=== PATIENT | female | born 1990 | race Caucasian/White ===

== ENCOUNTER 2016-07-16 09:28 | Observation (INO) | payer BC, OTHER ==
[~2016-07-16] VITALS: Ht 154.9 cm; Wt 50.0 kg
[~2016-07-16 09:28] MED LIST: TRAM50 PO; Z.0.NO CURRENT MEDS
[2016-07-16 09:29] VITALS: BP 112/76; PULSE 94; RESP 15; TEMP 97.4; O2SAT 98
[2016-07-16] MEDS ORDERED: SODIUM CHLOR 0.9% 1000 ML INJ 1,000 ML IV SCH (11:10)
[2016-07-16] MEDS ORDERED: SODIUM CHLORIDE 0.9% FLUSH 5 ML FLUSH IVF PRN ×2 (11:15→17:00)
[2016-07-16] MEDS ORDERED: ONDANSETRON HCL 4 MG/2 ML VIAL IVP ONE (11:15)
[2016-07-16] MEDS ORDERED: MORPHINE SULFATE 4 MG/ML INJ IV PUSH ONE ×3 (11:15→14:45)
--- NOTE | 2016-07-16 11:16 | PD ---
HPI Chief Complaint: Abdominal Pain Time Seen by Provider: 11:12 Travel History International Travel<30 days: No Contact w/Intl Traveler<30days: No Traveled to known affect area: No History of Present Illness HPI Patient comes in complaining of abdominal pain that she awoke with around 5:00 this morning. Patient reports pain is epigastric and right lower quadrant. Patient states she tried eating a banana with no improvement of her symptoms. Patient denies doing anything else for this. Patient describes pain as a cramping twisting sensation. Patient reports she has felt nauseous but denies any actual vomiting. Denies any chest pain, shortness breath, fevers, , diarrhea, or back pain. Patient's only reported abdominal surgeries C- section 4 years ago. [facility] Past Medical History Medical History: Denies Significant Hx Diminished Hearing: No ?: Not : 1 Para: 1 Past Surgical History Section: Yes Social History Alcohol Use: No Tobacco Use: No Substance Use: No Allergies-Medications (Allergen,Severity, Reaction): Coded Allergies: No Known Allergies (Verified , 04/06/12) Reported Meds & Prescriptions Reported Meds & Active Scripts Active Ultram (Tramadol HCl) 50 Mg Tab 1-2 Tab PO Q6-8HPRN FOR PAIN Reported No Current Meds (Miscellaneous Medication) Misc Review of Systems Except as stated in HPI: all other systems reviewed are Neg Physical Exam Narrative GENERAL: Well-developed, well nourished, in no acute distress, and non-ill appearing, but does appear uncomfortable. SKIN: Warm and dry. HEAD: Atraumatic. Normocephalic. EYES: Pupils equal and round. EOMI. No scleral icterus. No injection or drainage. ENT: No nasal bleeding or discharge. Mucous membranes pink and moist. NECK: Trachea midline. Supple. No nuclear rigidity. CARDIOVASCULAR: Regular rate and rhythm. No murmur appreciated. RESPIRATORY: No accessory muscle use. No respiratory distress. Clear to auscultation. Breath sounds equal bilaterally. GASTROINTESTINAL: Abdomen soft, right lower quadrant tenderness over McBurney's point, nondistended. Hepatic and splenic margins not palpable. Normal bowel sounds 4. No pulsatile mass. MUSCULOSKELETAL: No obvious deformities. No clubbing. No cyanosis. No edema. Full range of motion. NEUROLOGICAL: Awake and alert. No obvious cranial nerve deficits. Motor grossly within normal limits. Normal speech. PSYCHIATRIC: Appropriate mood and affect; insight and judgment normal. Data Data Last Documented VS Vital Signs Date Time Temp Pulse Resp B/P Pulse Ox O2 Delivery O2 Flow Rate FiO2 07/16/16 13:00 20 07/16/16 12:55 85 107/71 99 Room Air 07/16/16 09:29 97.4 Orders Urinalysis - C+S If Indicated (07/16/16 10:03) Ed Urine Pregnancytest Poc (07/16/16 10:03) Complete Blood Count With Diff (07/16/16 11:10) Comprehensive Metabolic Panel (07/16/16 11:10) Lipase (07/16/16 11:10) Prothrombin Time / Inr (Pt) (07/16/16 11:10) Act Partial Throm Time (Ptt) (07/16/16 11:10) Ct Abd/Pel W Iv Contrast(Rout) (07/16/16 11:10) Iv Access Insert/Monitor (07/16/16 11:10) Ecg Monitoring (07/16/16 11:10) Oximetry (07/16/16 11:10) NPO (07/16/16 11:10) Morphine Inj (Morphine Inj) (07/16/16 11:15) Ondansetron Inj (Zofran Inj) (07/16/16 11:15) Sodium Chlor 0.9% 1000 Ml Inj (Ns 1000 M (07/16/16 11:10) Sodium Chloride 0.9% Flush (Ns Flush) (07/16/16 11:15) Morphine Inj (Morphine Inj) (07/16/16 12:45) Iohexol 350 Inj (Omnipaque 350 Inj) (07/16/16 14:00) Piperacil-Tazo 3.375 Gm Premix (Zosyn 3. (07/16/16 14:45) Ondansetron Inj (Zofran Inj) (07/16/16 14:45) Morphine Inj (Morphine Inj) (07/16/16 14:45) Admit Order (Ed Use Only) (07/16/16 14:45) Labs Laboratory Tests Test 07/16/16 11:35 White Blood Count 15.8 TH/MM3 Red Blood Count 4.87 MIL/MM3 Hemoglobin 15.0 GM/DL Hematocrit 43.0 % Mean Corpuscular Volume 88.3 FL Mean Corpuscular Hemoglobin 30.8 PG Mean Corpuscular Hemoglobin 34.9 % Concent Red Cell Distribution Width 12.3 % Platelet Count 185 TH/MM3 Mean Platelet Volume 8.3 FL Neutrophils (%) (Auto) 79.7 % Lymphocytes (%) (Auto) 12.7 % Monocytes (%) (Auto) 6.1 % Eosinophils (%) (Auto) 1.2 % Basophils (%) (Auto) 0.3 % Neutrophils # (Auto) 12.6 TH/MM3 Lymphocytes # (Auto) 2.0 TH/MM3 Monocytes # (Auto) 1.0 TH/MM3 Eosinophils # (Auto) 0.2 TH/MM3 Basophils # (Auto) 0.1 TH/MM3 CBC Comment DIFF FINAL Differential Comment Prothrombin Time 10.9 SEC Prothromb Time International 1.0 RATIO Ratio Activated Partial 31.1 SEC Thromboplast Time Urine Color LIGHT-YELLOW Urine Turbidity CLEAR Urine pH 7.0 Urine Specific [place] 1.014 Urine Protein NEG mg/dL Urine Glucose (UA) NEG mg/dL Urine Ketones NEG mg/dL Urine Occult Blood NEG Urine Nitrite NEG Urine Bilirubin NEG Urine Urobilinogen LESS THAN 2.0 MG/DL Urine Leukocyte Esterase NEG Urine WBC LESS THAN 1 /hpf Urine Squamous Epithelial <1 /hpf Cells Urine Mucus FEW /lpf Microscopic Urinalysis Comment CULT NOT INDICATED Sodium Level 139 MEQ/L Potassium Level 4.4 MEQ/L Chloride Level 105 MEQ/L Carbon Dioxide Level 28.7 MEQ/L Anion Gap 5 MEQ/L Blood Urea Nitrogen 11 MG/DL Creatinine 0.66 MG/DL Estimat Glomerular Filtration 107 ML/MIN Rate Random Glucose 86 MG/DL Calcium Level 9.0 MG/DL Total Bilirubin 0.9 MG/DL Aspartate Amino Transf 36 U/L (AST/SGOT) Alanine Aminotransferase 62 U/L (ALT/SGPT) Alkaline Phosphatase 80 U/L Total Protein 8.2 GM/DL Albumin 4.1 GM/DL Lipase 191 U/L [facility] Medical Decision Making Medical Screen Exam Complete: Yes Emergency Medical Condition: Yes Differential Diagnosis Appendicitis, pancreatitis, diverticulitis, colitis, gastroenteritis, UTI, other Narrative Course Patient seen and examined. Laboratory studies were obtained and reviewed. CTs were read by radiology as acute appendicitis. She was given morphine for pain, Zofran for nausea, started on Zosyn. Discussed patient with Dr. Greco, his son evaluated the patient and discussed patient with Dr. Castle on-call general surgeon for admission. Discussed all findings and plan of care with patient was agreeable for admission. All questions were answered.. Diagnosis Primary Impression: Appendicitis, acute Qualified Code: K35.80 - Acute appendicitis, unspecified acute appendicitis type Admitting Information Admitting Physician Requests: Observation Condition: Stable Jeff Brooks Jul 16, 2016 11:16
[2016-07-16 11:54] LABS: AUTOMATED NEUTROPHIL # 12.6 TH/MM3 (1.8-7.7); BASOPHIL # 0.1 TH/MM3 (0-0.2); BASOPHIL % 0.3 % (0.0-2.0); EOSINOPHIL # 0.2 TH/MM3 (0-0.4); EOSINOPHIL % 1.2 % (0.0-4.0); HEMO FLAGS DIFF FINAL; LYMPH % 12.7 % (9.0-44.0); MEAN CELL VOLUME 88.3 FL (80.0-100.0); MEAN CORPUSCULAR HEMOGLOBIN 30.8 PG (27.0-34.0); MEAN CORPUSCULAR HGB CONC 34.9 % (32.0-36.0); MONO % 6.1 % (0.0-8.0); NEUT % 79.7 % (16.0-70.0); PLATELET COUNT 185 TH/MM3 (150-450); RED BLOOD COUNT 4.87 MIL/MM3 (4.00-5.30); RED CELL DISTRIBUTION WIDTH 12.3 % (11.6-17.2); WHITE BLOOD COUNT 15.8 TH/MM3 (4.0-11.0)
[2016-07-16] MEDS ORDERED: PROPOFOL 200 MG/20 ML AMP IV ONE (12:00)
[2016-07-16] MEDS ORDERED: NEOSTIGMINE 3 MG/3 ML SYR IV ONE (12:00)
[2016-07-16] MEDS ORDERED: NORMOSOL R INJ 1,000 ML IV ONE (12:00)
[2016-07-16] MEDS ORDERED: ONDANSETRON HCL 4 MG/2 ML VIAL IV PUSH ONE ×2 (12:00→14:45)
[2016-07-16] MEDS ORDERED: KETOROLAC TROMETHAMINE 60 MG/2 ML (IM) VIAL IM ONE (12:00)
[2016-07-16 12:04] LABS: PROTHROMBIN TIME - PATIENT 10.9 SEC (9.8-11.6)
[2016-07-16 12:07] LABS: APTT (PATIENT) 31.1 SEC (24.3-30.1)
[2016-07-16 12:09] LABS: BLOOD, URINE NEG (NEG); GLUCOSE,URINE NEG (NEG); KETONE, URINE NEG (NEG); MUCUS URINE FEW /lpf (OCC); NITRITE,URINE NEG (NEG); SQUAMOUS EPITHELIAL CELL URINE <1 /hpf (0-5); URINE COLOR LIGHT-YELLOW (YELLW/STRAW)
[2016-07-16 12:10] LABS: COMMENT (UR) CULT NOT INDICATED; CULTURE IF INDICATED CULT NOT INDICATED
[2016-07-16 12:14] LABS: ALKALINE PHOSPHATASE 80 U/L (45-117); ALT (GPT) 62 U/L (10-53); ANION GAP 5 MEQ/L (5-15); AST (GOT) 36 U/L (15-37); BICARBONATE 28.7 MEQ/L (21.0-32.0); BLOOD UREA NITROGEN 11 MG/DL (7-18); CHLORIDE 105 MEQ/L (98-107); GLOMERULAR FILTRATION RATE 107 ML/MIN (>89); SODIUM (NA) 139 MEQ/L (136-145); TOTAL BILIRUBIN ADULT 0.9 MG/DL (0.2-1.0)
[2016-07-16 12:28] LABS: POTASSIUM 4.4 MEQ/L (3.5-5.1)
[2016-07-16 12:55] VITALS: BP 107/71; PULSE 85; RESP 18; O2SAT 99
[2016-07-16] MEDS ORDERED: IOHEXOL 350 MG/ML 10 ML VIAL (for RAD DIAG) IV ONE (14:00)
--- NOTE | 2016-07-16 14:38 | RADRPT ---
EXAM DATE/TIME: 07/16/2016 13:40 [place] COMPARISON: No previous studies available for comparison. INDICATIONS : Epigastric pain. IV CONTRAST: 100 cc Omnipaque 350 (iohexol) IV ORAL CONTRAST: No oral contrast ingested. RADIATION DOSE: 4.54 CTDIvol (mGy) MEDICAL HISTORY : None SURGICAL HISTORY : section. ENCOUNTER: Initial ACUITY: 1 day PAIN SCALE: 10/10 LOCATION: Right lower quadrant TECHNIQUE: Volumetric scanning of the abdomen and pelvis was performed. Using automated exposure control and ad justment of the mA and/or kV according to patient size, radiation dose was kept as low as reasonably achievable to obtain optimal diagnostic quality images. FINDINGS: LOWER LUNGS: The visualized lower lungs are clear. LIVER: Homogeneous density without lesion. There is no dilation of the biliary tree. No calcified gallston es. SPLEEN: Normal size without lesion. PANCREAS: Within normal limits. KIDNEYS: Normal in size and shape. There is no mass, stone or hydronephrosis. ADRENAL GLANDS: Within normal limits. VASCULAR: There is no aortic aneurysm. BOWEL/MESENTERY: The stomach, small bowel, and colon demonstrate no acute abnormality. There is no free intraperitone al air. There is a trace on the free fluid in the pelvis. The appendix is fluid-filled and dilated me asuring up to 10 mm. There is questionable induration/inflammation of the periappendiceal fat. ABDOMINAL WALL: Within normal limits. RETROPERITONEUM: There is no lymphadenopathy. BLADDER: No wall thickening or mass. REPRODUCTIVE: Within normal limits. INGUINAL: There is no lymphadenopathy or hernia. MUSCULOSKELETAL: Within normal limits for patient age. CONCLUSION: 1. Dilated fluid-filled appendix with suspected mild inflammation in the surrounding periappendiceal fat. Findings are suspicious for acute appendicitis. Suggest correlation to clinical history since e indication provided above indicates epigastric pain. 2. There is trace free fluid in the pelvis. Leonid Villareal MD on July 16, 2016 at 14:32 Board Certified Radiologist. This report was verified electronically.
[2016-07-16] MEDS ORDERED: PIPERACIL-TAZO 3.375 GM PREMIX 50 ML IV ONE (14:45)
--- NOTE | 2016-07-16 14:50 | PD ---
Physical Exam Narrative GENERAL: Well-nourished, well-developed patient. SKIN: Warm and dry. HEAD: Normocephalic and atraumatic. EYES: No injection or drainage. ENT: No nasal drainage noted. NECK: Supple, trachea midline. CARDIOVASCULAR: Regular rate and rhythm RESPIRATORY: no increased effort. No accessory muscle use. NEUROLOGICAL: Awake and alert. Motor and sensory grossly within normal limits. Normal speech. Data Data Last Documented VS Vital Signs Date Time Temp Pulse Resp B/P Pulse Ox O2 Delivery O2 Flow Rate FiO2 07/16/16 13:00 20 07/16/16 12:55 85 107/71 99 Room Air 07/16/16 09:29 97.4 Orders Urinalysis - C+S If Indicated (07/16/16 10:03) Ed Urine Pregnancytest Poc (07/16/16 10:03) Complete Blood Count With Diff (07/16/16 11:10) Comprehensive Metabolic Panel (07/16/16 11:10) Lipase (07/16/16 11:10) Prothrombin Time / Inr (Pt) (07/16/16 11:10) Act Partial Throm Time (Ptt) (07/16/16 11:10) Ct Abd/Pel W Iv Contrast(Rout) (07/16/16 11:10) Iv Access Insert/Monitor (07/16/16 11:10) Ecg Monitoring (07/16/16 11:10) Oximetry (07/16/16 11:10) NPO (07/16/16 11:10) Morphine Inj (Morphine Inj) (07/16/16 11:15) Ondansetron Inj (Zofran Inj) (07/16/16 11:15) Sodium Chlor 0.9% 1000 Ml Inj (Ns 1000 M (07/16/16 11:10) Sodium Chloride 0.9% Flush (Ns Flush) (07/16/16 11:15) Morphine Inj (Morphine Inj) (07/16/16 12:45) Iohexol 350 Inj (Omnipaque 350 Inj) (07/16/16 14:00) Piperacil-Tazo 3.375 Gm Premix (Zosyn 3. (07/16/16 14:45) Ondansetron Inj (Zofran Inj) (07/16/16 14:45) Morphine Inj (Morphine Inj) (07/16/16 14:45) Admit Order (Ed Use Only) (07/16/16 14:45) Labs Laboratory Tests Test 07/16/16 11:35 White Blood Count 15.8 TH/MM3 Red Blood Count 4.87 MIL/MM3 Hemoglobin 15.0 GM/DL Hematocrit 43.0 % Mean Corpuscular Volume 88.3 FL Mean Corpuscular Hemoglobin 30.8 PG Mean Corpuscular Hemoglobin 34.9 % Concent Red Cell Distribution Width 12.3 % Platelet Count 185 TH/MM3 Mean Platelet Volume 8.3 FL Neutrophils (%) (Auto) 79.7 % Lymphocytes (%) (Auto) 12.7 % Monocytes (%) (Auto) 6.1 % Eosinophils (%) (Auto) 1.2 % Basophils (%) (Auto) 0.3 % Neutrophils # (Auto) 12.6 TH/MM3 Lymphocytes # (Auto) 2.0 TH/MM3 Monocytes # (Auto) 1.0 TH/MM3 Eosinophils # (Auto) 0.2 TH/MM3 Basophils # (Auto) 0.1 TH/MM3 CBC Comment DIFF FINAL Differential Comment Prothrombin Time 10.9 SEC Prothromb Time International 1.0 RATIO Ratio Activated Partial 31.1 SEC Thromboplast Time Urine Color LIGHT-YELLOW Urine Turbidity CLEAR Urine pH 7.0 Urine Specific [place] 1.014 Urine Protein NEG mg/dL Urine Glucose (UA) NEG mg/dL Urine Ketones NEG mg/dL Urine Occult Blood NEG Urine Nitrite NEG Urine Bilirubin NEG Urine Urobilinogen LESS THAN 2.0 MG/DL Urine Leukocyte Esterase NEG Urine WBC LESS THAN 1 /hpf Urine Squamous Epithelial <1 /hpf Cells Urine Mucus FEW /lpf Microscopic Urinalysis Comment CULT NOT INDICATED Sodium Level 139 MEQ/L Potassium Level 4.4 MEQ/L Chloride Level 105 MEQ/L Carbon Dioxide Level 28.7 MEQ/L Anion Gap 5 MEQ/L Blood Urea Nitrogen 11 MG/DL Creatinine 0.66 MG/DL Estimat Glomerular Filtration 107 ML/MIN Rate Random Glucose 86 MG/DL Calcium Level 9.0 MG/DL Total Bilirubin 0.9 MG/DL Aspartate Amino Transf 36 U/L (AST/SGOT) Alanine Aminotransferase 62 U/L (ALT/SGPT) Alkaline Phosphatase 80 U/L Total Protein 8.2 GM/DL Albumin 4.1 GM/DL Lipase 191 U/L MDM Supervised Visit with JANES: Yes Interpretation(s) CBC & BMP Diagram 07/16/16 11:35 Last 24 hours Impressions Abdomen/Pelvis CT 07/16/16 1110 Signed Impressions: Service Date/Time: Saturday, July 16, 2016 13:40 - CONCLUSION: 1. Dilated fluid-filled appendix with suspected mild inflammation in the surrounding periappendiceal fat. Findings are suspicious for acute appendicitis. Suggest correlation to clinical history since the indication provided above indicates epigastric pain. 2. There is trace free fluid in the pelvis. Leonid Villareal MD Narrative Course I, Dr. bryant, have reviewed the advance practice practitioner's documentation and am in agreement, met with the patient face to face, made the diagnosis, and the medical decision making was done by me. *My assessment and Findings: 26-year-old female presents with epigastric abdominal pain but is tender and right lower quadrant. CT was followed which showed appendicitis. Patient was updated and she will be admitted with general surgery. Physician Communication Physician Communication dr nunez agrees to admit and will see patient Diagnosis Primary Impression: Appendicitis, acute Qualified Code: K35.80 - Acute appendicitis, unspecified acute appendicitis type Admitting Information Admitting Physician Requests: Observation Helen Bryant MD Jul 16, 2016 14:50
[2016-07-16] MEDS ORDERED: BUPIVACAINE/EPINEPHRINE 0.25% PF 30 ML VIAL ONE (15:18)
[2016-07-16] MEDS ORDERED: fentaNYL CITRATE 250 MCG/5 ML AMP ONE (15:25)
[2016-07-16] MEDS ORDERED: MIDAZOLAM HCL 2 MG/2 ML VIAL ONE (15:25)
[2016-07-16] MEDS ORDERED: ACETAMINOPHEN 1000 MG/100 ML VIAL IV ONE (15:25)
--- NOTE | 2016-07-16 16:06 | MH ---
cc: RICK WESTFALL M.D. DATE OF ADMISSION: 07/16/2016 CHIEF COMPLAINT: Appendicitis. HISTORY OF PRESENT ILLNESS: Han is a very pleasant 26-year-old female who presented to the emergency department today with complaints of a six-hour history of epigastric and right lower quadrant abdominal pain. She states she woke up from sleep this morning at 5:00 a.m. and had severe epigastric and right lower quadrant abdominal pain. She came to the emergency department where she was seen by Inocencio Brooks and Dr. Helen Plascencia and was worked up and found to have acute appendicitis. Surgical consultation was requested. The patient denies previous episodes abdominal pain. She reports some nausea and one episode of emesis in the emergency room. She denies any fever or chills. She denies any denies any recent urinary tract infections or STDs. Her pain is mainly in the right lower quadrant and made worse by movement. PAST MEDICAL HISTORY: None. PAST SURGICAL HISTORY: She had a several years ago for her child, uncomplicated. FAMILY HISTORY: Her family history is noncontributory . SOCIAL HISTORY: She does not smoke or drink. She lives here locally with her and child. REVIEW OF SYSTEMS: For her review of systems, please see the history of present illness. PHYSICAL EXAMINATION: VITAL SIGNS: Temperature is 97, pulse 90, blood pressure 112/70, respiratory rate 20. GENERAL: This is a pleasant thin young female who appears uncomfortable accompanied by her in the emergency room. HEAD, EYES, EARS, NOSE, THROAT: Pupils equal, round and reactive to light. The sclerae are white. Oropharynx is clear and moist. NECK: The neck is supple. No masses. LUNGS: Clear to auscultation bilaterally. HEART: S1-S2. No murmur. ABDOMEN: Abdomen soft and tender in the right lower quadrant with voluntary guarding and rebound. No abdominal masses. Low transverse incision. No obvious hernias. EXTREMITIES: Free range of motion x4. NEUROLOGIC: Alert and oriented times three. LABS: White blood cell count 15, hemoglobin 15, platelet count 185,000. She has 79% neutrophils. Electrolytes are within normal limits. Lipase 191. INR 1.0. Urinalysis is negative. IMAGING STUDIES: CT scan of the abdomen and pelvis shows a dilated appendix in the right lower quadrant consistent with early acute appendicitis. IMPRESSION: Acute appendicitis. PLAN: The risks and benefits of open and laparoscopic appendectomy were discussed with her and her at the bedside and they are willing to proceed. The operating room was notified and they will send for the patient shortly. MD SKYLER Hammond/HÉCTOR /3:26 PM /3:59 PM
[2016-07-16] MEDS ORDERED: DO NOT ADM ANY ANTICOAGULANT DRUGS XX PRN (16:45)
[2016-07-16] MEDS ORDERED: LACTATED RINGER'S 1000 ML INJ 1,000 ML IV SCH (16:49)
[2016-07-16] MEDS ORDERED: diphenhydrAMINE HCL 25 MG CAP PO PRN (17:00)
[2016-07-16] MEDS ORDERED: MORPHINE SULFATE 4 MG/ML INJ IV PUSH PRN (17:00)
[2016-07-16] MEDS ORDERED: NALOXONE HCL 0.4 MG/ML AMP IV PRN (17:00)
[2016-07-16] MEDS ORDERED: ACETAMINOPHEN/HYDROcodone 325 MG/5 MG TAB PO PRN ×2 (17:00)
[2016-07-16] MEDS ORDERED: KETOROLAC TROMETHAMINE 30 MG/ML (IVP) VIAL IVP PRN (17:00)
[2016-07-16] MEDS ORDERED: ONDANSETRON HCL 4 MG/2 ML VIAL IV PRN (17:00)
[2016-07-16] MEDS ORDERED: HYDROmorphone HCL PF 1 MG/ML VIAL IV PRN (17:00)
[2016-07-16] MEDS ORDERED: Post-op Orders (for Pharmacy) MISC XX ONE (17:00)
[2016-07-16] MEDS ORDERED: *ONDANSETRON 4 MG VIAL PERIprocedural Use ONLY ONE (17:59)
[2016-07-16] MEDS ORDERED: PROMETHAZINE INJ 25 MG/ML VIAL ONE (19:10)
[2016-07-16 20:00] VITALS: BP 92/58; PULSE 62; RESP 20; TEMP 97.6; O2SAT 100
[2016-07-16] MEDS ORDERED: SODIUM CHLORIDE 0.9% FLUSH 5 ML FLUSH IVF SCH (21:00)
[2016-07-17] VITALS: BP 100/60; PULSE 68; RESP 20; TEMP 98.8; O2SAT 100
[2016-07-17] MEDS ORDERED: NORC5TAB PO (01:05)
[2016-07-17 04:00] VITALS: BP 112/56; PULSE 79; RESP 20; TEMP 97.9; O2SAT 97
[2016-07-18] MEDS ORDERED: ZOFR4TAB PO (15:07)
--- NOTE | 2016-07-19 17:57 | MP ---
cc: RICK WESTFALL M.D. DATE OF SURGERY: 07/16/2016 PREOPERATIVE DIAGNOSIS: Acute appendicitis. POSTOPERATIVE DIAGNOSIS: Acute appendicitis. OPERATION: Laparoscopic appendectomy. SURGEON: Rick Westfall MD. ANESTHESIA: General endotracheal. COMPLICATIONS: None. INDICATIONS FOR PROCEDURE: Han is a pleasant 26-year-old female presented emergency department with several hour history of right lower quadrant abdominal pain. She was worked up to evaluate and found have acute appendicitis. Risks and benefits of open laparoscopic appendectomy discussed with her and her . She was agreeable. PROCEDURE: Details the patient identified, brought to the operating placed supine on the table. After adequate general anesthesia was achieved general endotracheal anesthesia achieved the abdomen is prepped and draped in standard surgical fashion. Supraumbilical space was sized core percent Marcaine. Supraumbilical incision was made. Dissection was carried down subcutaneous tissue midline fascia. Midline fascia was incised sharply. A finger was then placed in the peritoneal cavity without difficulty. Blunt balloon trocar was inserted and was insufflated 15 mmHg using CO2 gas. Next two 5 mm trocars were placed in the lower midline under direct vision. Both trocars were placed after anesthetizing skin and subcutaneous tissue with 0.25% Marcaine. Attention direct lower midline where the patient had some adhesions from her uterus to the anterior abdominal wall and some omentum. The omentum was carefully taken down the uterus was left in place. Attention was directed right lower quadrant where inflamed appendix was identified. There is no evidence of gross perforation. The appendix was grasped and elevated cephalad. Appendiceal mesentery was then taken down with harmonic scalpel to the level of cecal base. Once cecal base was identified two 2-0 Vicryl Endoloops were placed proximally on the base of the appendix. Distal appendix was then transected with the harmonic scalpel placed into an Endopouch bag and brought to the supraumbilical port. Appendix was sent to pathology for analysis. Next the abdominal cavity rinsed out 1 liter warm saline solution. The cecal base was carefully inspected the appendiceal stump was without any evidence of leakage of stool or bleeding. Irrigant was then removed from the abdominal cavity. Omentum was then placed over the base of the cecum and over the small bowel down into the pelvis. All trocars removed under direct vision. Midline fascia was repaired with 0 Vicryl in [id number] fashion. Skin was closed with 4-0 Vicryl. The patient tolerated the procedure well, was awakened, brought to recovery in stable condition. MD Maria Dolores Hammond /4:48 PM /5:53 PM
== END 2016-07-17 08:50 | disposition home or self-care (01) ==
LOC: NEPC 09:28 → N07B 14:46
PROVIDERS: ADMIT Emergency Medicine; ATTEND Emergency Medicine
DX: K35.80 Unspecified acute appendicitis (principal); K66.0 Peritoneal adhesions (postprocedural) (postinfection)
CPT/HCPCS: 00840; 44970; 74177; 80053; 81001; 83690; 84703; 85025; 85610; 85730; 88304; 94150; 96361; 96374; 96375; 96376; 99285; G0378; J0131; J1885; J2250; J2270; J2405; J2543; J2550; J2710; J3010; J7030; J7120; Q9967

== ENCOUNTER 2016-07-18 12:28 | Emergency (ER) | payer OTHER ==
[~2016-07-18] VITALS: Ht 154.9 cm; Wt 45.0 kg
[~2016-07-18 12:28] MED LIST changes: +NORC5TAB PO
[2016-07-18 12:31] VITALS: BP 109/68; PULSE 91; RESP 14; TEMP 97.6; O2SAT 97
--- NOTE | 2016-07-18 13:02 | PD ---
HPI Chief Complaint: GI Complaint Time Seen by Provider: 13:02 Travel History International Travel<30 days: No Contact w/Intl Traveler<30days: No Traveled to known affect area: No History of Present Illness HPI 26-year-old female with no significant medical history except for recent appendectomy by Dr. Isaac nunez following an acute appendicitis 2 days ago. Patient states she has been unable to keep any solids down. She's been nauseous with vomiting. She has not had a bowel movement. She has been passing gas however. She denies fever or chills. No chest tightness. No difficulty breathing. No urinary symptoms. Abdominal pain around the right lower quadrant and inferior to the umbilicus mostly with palpation or movement otherwise she has no other symptoms to report. PFSH Past Medical History Medical History: Denies Significant Hx Anxiety: No Depression: No Cancer: No Diminished Hearing: No Endocrine: No Psychiatric: No ?: Not LMP: MARCH : 1 Para: 1 Miscarriage: 0 : 0 Past Surgical History Section: Yes Social History Alcohol Use: No Tobacco Use: No Substance Use: No Allergies-Medications (Allergen,Severity, Reaction): Coded Allergies: No Known Allergies (Verified , 07/18/16) Reported Meds & Prescriptions Reported Meds & Active Scripts Active Zofran (Ondansetron HCl) 4 Mg Tab 4 Mg PO Q6HR PRN Reported [place] (Hydrocodone-Acetaminophen) 5-325 mg Tab 1 Tab PO Q4H PRN Review of Systems Except as stated in HPI: all other systems reviewed are Neg Physical Exam Narrative GENERAL: Thin female patient, ambulatory and in no acute distress SKIN: Warm and dry. Flushed HEAD: Atraumatic. Normocephalic. EYES: Pupils equal and round. No scleral icterus. No injection or drainage. ENT: No nasal bleeding or discharge. Mucous membranes pink and moist. NECK: Trachea midline. No JVD. CARDIOVASCULAR: Elevated rate and rhythm. No murmur appreciated. RESPIRATORY: No accessory muscle use. Clear to auscultation. Breath sounds equal bilaterally. GASTROINTESTINAL: Abdomen soft, nondistended. Laparoscopic incision sites are well approximated. There appears to be a erythematous rash in the umbilicus, possible local reaction. Patient does have tenderness elicited palpation inferior to the abdomen and right lower quadrant. No rebound tenderness or guarding.. Hepatic and splenic margins not palpable. MUSCULOSKELETAL: No obvious deformities. No clubbing. No cyanosis. No edema. NEUROLOGICAL: Awake and alert. No obvious cranial nerve deficits. Motor grossly within normal limits. Normal speech. PSYCHIATRIC: Appropriate mood and affect; insight and judgment normal. Data Data Last Documented VS Vital Signs Date Time Temp Pulse Resp B/P Pulse Ox O2 Delivery O2 Flow Rate FiO2 07/18/16 12:31 97.6 91 14 109/68 97 Room Air Orders Complete Blood Count With Diff (07/18/16 13:03) Basic Metabolic Panel (Bmp) (07/18/16 13:03) Urinalysis - C+S If Indicated (07/18/16 13:03) Ondansetron Odt (Zofran Odt) (07/18/16 15:00) Acetamin-Hydrocod 325-5 Mg ([place] 5-325 (07/18/16 15:00) Labs Laboratory Tests Test 07/18/16 07/18/16 13:35 13:40 Urine Color YELLOW Urine Turbidity HAZY Urine pH 6.0 Urine Specific [place] 1.024 Urine Protein TRACE mg/dL Urine Glucose (UA) NEG mg/dL Urine Ketones NEG mg/dL Urine Occult Blood NEG Urine Nitrite NEG Urine Bilirubin NEG Urine Urobilinogen LESS THAN 2.0 MG/DL Urine Leukocyte Esterase NEG Urine RBC 1 /hpf Urine WBC 1 /hpf Urine Squamous Epithelial 9 /hpf Cells Urine Mucus FEW /lpf Microscopic Urinalysis Comment CULT NOT INDICATED White Blood Count 9.5 TH/MM3 Red Blood Count 4.18 MIL/MM3 Hemoglobin 12.6 GM/DL Hematocrit 38.0 % Mean Corpuscular Volume 90.9 FL Mean Corpuscular Hemoglobin 30.3 PG Mean Corpuscular Hemoglobin 33.3 % Concent Red Cell Distribution Width 12.5 % Platelet Count 161 TH/MM3 Mean Platelet Volume 8.9 FL Neutrophils (%) (Auto) 65.6 % Lymphocytes (%) (Auto) 26.3 % Monocytes (%) (Auto) 6.1 % Eosinophils (%) (Auto) 1.6 % Basophils (%) (Auto) 0.4 % Neutrophils # (Auto) 6.2 TH/MM3 Lymphocytes # (Auto) 2.5 TH/MM3 Monocytes # (Auto) 0.6 TH/MM3 Eosinophils # (Auto) 0.1 TH/MM3 Basophils # (Auto) 0.0 TH/MM3 CBC Comment DIFF FINAL Differential Comment Sodium Level 141 MEQ/L Potassium Level 3.9 MEQ/L Chloride Level 105 MEQ/L Carbon Dioxide Level 31.4 MEQ/L Anion Gap 5 MEQ/L Blood Urea Nitrogen 12 MG/DL Creatinine 0.60 MG/DL Estimat Glomerular Filtration 120 ML/MIN Rate Random Glucose 92 MG/DL Calcium Level 8.5 MG/DL MDM Medical Decision Making Medical Screen Exam Complete: Yes Emergency Medical Condition: Yes Medical Record Reviewed: Yes Differential Diagnosis Postop nausea vomiting versus postop infection versus medication side effect Narrative Course 26-year-old female presents to the emergency department for evaluation of nausea and vomiting with associated lower abdominal pain following appendectomy 2 days ago. Patient appears like she does not feel well however she does not appear in any distress. Workup was initiated in triage. Once a medical bed becomes available, patient will be transferred and care assumed by the provider. Scripts Ondansetron (Zofran)4 Mg Tab4 Mg PO Q6HR PRN (NAUSEA OR VOMITING) #15 TAB Ref 0 Prov:Odalys Anand MD 07/18/16 Condition: Stable Lady Knowles Jul 18, 2016 13:02
[2016-07-18 13:48] LABS: BLOOD, URINE NEG (NEG); GLUCOSE,URINE NEG (NEG); KETONE, URINE NEG (NEG); MUCUS URINE FEW /lpf (OCC); NITRITE,URINE NEG (NEG); SQUAMOUS EPITHELIAL CELL URINE 9 /hpf (0-5); URINE COLOR YELLOW (YELLW/STRAW)
[2016-07-18 13:50] LABS: COMMENT (UR) CULT NOT INDICATED; CULTURE IF INDICATED CULT NOT INDICATED
[2016-07-18 14:33] LABS: AUTOMATED NEUTROPHIL # 6.2 TH/MM3 (1.8-7.7); BASOPHIL % 0.4 % (0.0-2.0); EOSINOPHIL # 0.1 TH/MM3 (0-0.4); EOSINOPHIL % 1.6 % (0.0-4.0); HEMO FLAGS DIFF FINAL; LYMPH % 26.3 % (9.0-44.0); LYMPHOCYTE # 2.5 TH/MM3 (1.0-4.8); MEAN CELL VOLUME 90.9 FL (80.0-100.0); MEAN CORPUSCULAR HEMOGLOBIN 30.3 PG (27.0-34.0); MEAN CORPUSCULAR HGB CONC 33.3 % (32.0-36.0); MONO % 6.1 % (0.0-8.0); NEUT % 65.6 % (16.0-70.0); PLATELET COUNT 161 TH/MM3 (150-450); RED BLOOD COUNT 4.18 MIL/MM3 (4.00-5.30); RED CELL DISTRIBUTION WIDTH 12.5 % (11.6-17.2); WHITE BLOOD COUNT 9.5 TH/MM3 (4.0-11.0)
[2016-07-18 14:54] LABS: BICARBONATE 31.4 MEQ/L (21.0-32.0); POTASSIUM 3.9 MEQ/L (3.5-5.1)
[2016-07-18] MEDS ORDERED: ACETAMINOPHEN/HYDROcodone 325 MG/5 MG TAB PO ONE (15:00)
[2016-07-18] MEDS ORDERED: ONDANSETRON ODT 4 MG TAB PO ONE (15:00)
--- NOTE | 2016-07-18 15:04 | PD ---
Data Data Last Documented VS Vital Signs Date Time Temp Pulse Resp B/P Pulse Ox O2 Delivery O2 Flow Rate FiO2 07/18/16 12:31 97.6 91 14 109/68 97 Room Air Orders Complete Blood Count With Diff (07/18/16 13:03) Basic Metabolic Panel (Bmp) (07/18/16 13:03) Urinalysis - C+S If Indicated (07/18/16 13:03) Ondansetron Odt (Zofran Odt) (07/18/16 15:00) Acetamin-Hydrocod 325-5 Mg ([place] 5-325 (07/18/16 15:00) Labs Laboratory Tests Test 07/18/16 07/18/16 13:35 13:40 Urine Color YELLOW Urine Turbidity HAZY Urine pH 6.0 Urine Specific [place] 1.024 Urine Protein TRACE mg/dL Urine Glucose (UA) NEG mg/dL Urine Ketones NEG mg/dL Urine Occult Blood NEG Urine Nitrite NEG Urine Bilirubin NEG Urine Urobilinogen LESS THAN 2.0 MG/DL Urine Leukocyte Esterase NEG Urine RBC 1 /hpf Urine WBC 1 /hpf Urine Squamous Epithelial 9 /hpf Cells Urine Mucus FEW /lpf Microscopic Urinalysis Comment CULT NOT INDICATED White Blood Count 9.5 TH/MM3 Red Blood Count 4.18 MIL/MM3 Hemoglobin 12.6 GM/DL Hematocrit 38.0 % Mean Corpuscular Volume 90.9 FL Mean Corpuscular Hemoglobin 30.3 PG Mean Corpuscular Hemoglobin 33.3 % Concent Red Cell Distribution Width 12.5 % Platelet Count 161 TH/MM3 Mean Platelet Volume 8.9 FL Neutrophils (%) (Auto) 65.6 % Lymphocytes (%) (Auto) 26.3 % Monocytes (%) (Auto) 6.1 % Eosinophils (%) (Auto) 1.6 % Basophils (%) (Auto) 0.4 % Neutrophils # (Auto) 6.2 TH/MM3 Lymphocytes # (Auto) 2.5 TH/MM3 Monocytes # (Auto) 0.6 TH/MM3 Eosinophils # (Auto) 0.1 TH/MM3 Basophils # (Auto) 0.0 TH/MM3 CBC Comment DIFF FINAL Differential Comment Sodium Level 141 MEQ/L Potassium Level 3.9 MEQ/L Chloride Level 105 MEQ/L Carbon Dioxide Level 31.4 MEQ/L Anion Gap 5 MEQ/L Blood Urea Nitrogen 12 MG/DL Creatinine 0.60 MG/DL Estimat Glomerular Filtration 120 ML/MIN Rate Random Glucose 92 MG/DL Calcium Level 8.5 MG/DL MDM Supervised Visit with JANES: Yes Narrative Course I, Dr. Anand, have reviewed the advance practice practioner's documentation and am in agreement, met with the patient face to face, made the diagnosis, and the medical decision making was done by me. *My assessment and Findings: 26-year-old female postop day #2 from lap appendectomy here with nausea and episode of vomiting after taking her analgesics on empty stomach. She has minimal periumbilical abdominal pain, points to her umbilical incision. The remainder of her abdomen is benign but she does have point tenderness over this area. No palpable dehiscence. Mild erythema/ecchymosis at the umbilicus. No drainage. No dehiscence. My suspicion is that her symptoms are likely from taking her analgesics on empty stomach, she does not have any evidence of obstruction or postoperative ileus. No evidence of postop infection. Laboratory workup was unremarkable. We will notify her surgeon for hopeful disposition home. Condition: Stable Odalys Anand MD Jul 18, 2016 15:04
--- NOTE | 2016-07-18 15:06 | PD ---
Physical Exam Time Seen by Provider: 14:53 Narrative Patient seen by provider in triage who initiated workup, please see her initial documentation. I assumed care of the patient once she was placed in B pod. Essentially this is a 26-year-old female who presents to the emergency department for evaluation of one episode of nonbloody nonbilious emesis that occurred this morning at about 6 AM. Patient states that at about 5 AM she woke up with abdominal pain and took 2 Lortab 5325 milligram tablets and then after this medication began to feel very nauseous and had 1 episode of vomiting. She states that she has had some nausea associated with taking the pain medication but wanted to come in and make sure that everything was okay. She denies running any fever, chills, diarrhea, constipation, bloody stool, dysuria. States that she did eat a full meal yesterday without difficulty and has been keeping fluids down without difficulty. States that today she has not eaten yet because of her nausea and was afraid that she would throw up. GENERAL: Well-nourished and well-developed pleasant patient in no acute distress who is nontoxic appearing. SKIN: Warm and dry. HEAD: Normocephalic and atraumatic. EYES: No injection, drainage, or hyphema noted. PERRLA. EOMI. ENT: No nasal drainage noted. Oropharynx is clear. NECK: Supple and the trachea is midline. CARDIOVASCULAR: Regular rate and rhythm. RESPIRATORY: Breath sounds are equal bilaterally with no accessory muscle use, wheezing, rhonchi, or crackles. GASTROINTESTINAL: Surgical incisions noted without signs of infection. The incision of the umbilicus has some local irritation. Mild tenderness to palpation of right lower abdomen and peribumbilical region. No peritoneal signs. Abdomen is soft and nondistended. MUSCULOSKELETAL: No obvious deformities, swelling, cyanosis, or ecchymosis is present throughout the upper and lower extremities. NEUROLOGICAL: Awake, alert, and oriented. Normal speech and gait. Cranial nerves are grossly intact. Data Data Last Documented VS Vital Signs Date Time Temp Pulse Resp B/P Pulse Ox O2 Delivery O2 Flow Rate FiO2 07/18/16 12:31 97.6 91 14 109/68 97 Room Air Orders Complete Blood Count With Diff (07/18/16 13:03) Basic Metabolic Panel (Bmp) (07/18/16 13:03) Urinalysis - C+S If Indicated (07/18/16 13:03) Ondansetron Odt (Zofran Odt) (07/18/16 15:00) Acetamin-Hydrocod 325-5 Mg ([place] 5-325 (07/18/16 15:00) Labs Laboratory Tests Test 07/18/16 07/18/16 13:35 13:40 Urine Color YELLOW Urine Turbidity HAZY Urine pH 6.0 Urine Specific Martin 1.024 Urine Protein TRACE mg/dL Urine Glucose (UA) NEG mg/dL Urine Ketones NEG mg/dL Urine Occult Blood NEG Urine Nitrite NEG Urine Bilirubin NEG Urine Urobilinogen LESS THAN 2.0 MG/DL Urine Leukocyte Esterase NEG Urine RBC 1 /hpf Urine WBC 1 /hpf Urine Squamous Epithelial 9 /hpf Cells Urine Mucus FEW /lpf Microscopic Urinalysis Comment CULT NOT INDICATED White Blood Count 9.5 TH/MM3 Red Blood Count 4.18 MIL/MM3 Hemoglobin 12.6 GM/DL Hematocrit 38.0 % Mean Corpuscular Volume 90.9 FL Mean Corpuscular Hemoglobin 30.3 PG Mean Corpuscular Hemoglobin 33.3 % Concent Red Cell Distribution Width 12.5 % Platelet Count 161 TH/MM3 Mean Platelet Volume 8.9 FL Neutrophils (%) (Auto) 65.6 % Lymphocytes (%) (Auto) 26.3 % Monocytes (%) (Auto) 6.1 % Eosinophils (%) (Auto) 1.6 % Basophils (%) (Auto) 0.4 % Neutrophils # (Auto) 6.2 TH/MM3 Lymphocytes # (Auto) 2.5 TH/MM3 Monocytes # (Auto) 0.6 TH/MM3 Eosinophils # (Auto) 0.1 TH/MM3 Basophils # (Auto) 0.0 TH/MM3 CBC Comment DIFF FINAL Differential Comment [facility] Supervised Visit with JANES: No Differential Diagnosis Adverse reaction to medication versus postop infection versus dehydration versus vomiting Narrative Course 26-year-old female presents to the emergency department 2 days postop appendectomy for evaluation of one episode of nonbloody nonbilious emesis that occurred after taking 2 tablets of Lortab this morning. Patient is afebrile, vital signs are stable. She does have some periumbilical and right lower quadrant tenderness to palpation but no peritoneal signs. She was seen by the provider in triage who ordered labs. CBC is unremarkable. Urinalysis shows few mucus, otherwise unremarkable. BMP is unremarkable. The patient vomited secondary to adverse reaction from the Lortab. We'll give the patient a prescription for Zofran. Patient is stable for discharge. I discussed the case with my attending physician Dr. Anand who is aware of the patients history, physical examination findings, and treatment plan. Physician Communication Physician Communication I paged Dr. Isaac Quach and was transferred to OR suite where the circulating nurse took message from me to let Dr. Quach know as a courtesy that the patient had been evaluated, treated and discharged. Diagnosis Primary Impression: Adverse effects of medication Qualified Code: T88.7XXA - Adverse effects of medication, initial encounter Additional Impression: Nausea & vomiting Qualified Code: R11.2 - Non-intractable vomiting with nausea, unspecified vomiting type Referrals: Isaac Quach MD Patient Instructions: Acute Nausea and Vomiting (ED), Adverse Drug Reaction (ED ), General Instructions Additional Instruction: Maintain adequate hydration. Take medication as prescribed. Follow-up with Dr. Quach as scheduled. Return to the ED for any acute worsening of symptoms. Med/Other Pt SpecificInfo: Prescription(s) given Disposition: 01 DISCHARGE HOME Condition: Stable Ashley Banerjee Jul 18, 2016 15:06
[2016-07-18] MEDS ORDERED: ZOFR4TAB PO (15:07)
== END 2016-07-18 15:34 | disposition home or self-care (01) ==
LOC: NEPB 12:28
DX: T88.7XXA Unspecified adverse effect of drug or medicament, initial encounter (principal); R11.2 Nausea with vomiting, unspecified; R10.31 Right lower quadrant pain; R10.33 Periumbilical pain; Z98.890 Other specified postprocedural states
CPT/HCPCS: 80048; 81001; 85025; 99283